=== PATIENT | male | born 1950 | race Two or more races ===

== ENCOUNTER 2020-04-11 11:12 | Emergency (ER) | payer OTHER ==
[~2020-04-11] VITALS: Ht 170.2 cm; Wt 77.1 kg
== END 2020-04-11 14:41 | disposition home or self-care (01) ==
LOC: ER 11:12
DX: S01.82XA Laceration with foreign body of other part of head, initial encounter (principal); W22.8XXA Striking against or struck by other objects, initial encounter; Y93.89 Activity, other specified; Y92.098 Other place in other non-institutional residence as the place of occurrence of the external cause; Y99.8 Other external cause status

== ENCOUNTER → 2020-04-23 | Emergency (ER) | payer OTHER ==
[~2020-04-23] VITALS: Ht 170.2 cm; Wt 83.9 kg
== END | disposition home or self-care (01) ==
LOC: ER 10:10
DX: Z48.02 Encounter for removal of sutures (principal); I10 Essential (primary) hypertension

== ENCOUNTER 2022-01-23 00:44 | Emergency (ER) | payer OTHER ==
[~2022-01-23] VITALS: Ht 170.2 cm; Wt 83.9 kg
[2022-01-23] MEDS ORDERED: LOSARTAN POTAS100 MG PO (00:52)
== END 2022-01-23 09:09 ==
LOC: ER 00:44
DX: R12 Heartburn (principal); Z87.898 Personal history of other specified conditions; I10 Essential (primary) hypertension; Z85.46 Personal history of malignant neoplasm of prostate